=== PATIENT | female | born 1955 | race Caucasian/White ===

== ENCOUNTER 2018-08-13 05:40 | Inpatient (IN) | payer OTHER ==
[2018-08-13] VITALS (29 sets, daily range): BP systolic 101–144; BP diastolic 46–73; PULSE 66–94; RESP 9–21; Ht 157.5 cm; Wt 63.4 kg
[~2018-08-13] VITALS: Ht 157.5 cm; Wt 63.4 kg
[2018-08-13] MEDS ORDERED: ALEN5TAB3 PO (06:20)
[2018-08-13] MEDS ORDERED: BUPIVACAINE 0.5%/EPI (SDV) 30 ML INJ ONE (06:44)
[2018-08-13] MEDS ORDERED: SURGIFOAM POWDER 1 GM KIT ONE (06:44)
--- NOTE | 2018-08-13 06:44 | PREAC ---
Date/Time of Note Date/Time of Note DATE: 08/13/18 TIME: 06:42 Anesthesia Eval and Record Evaluation Time Pre-Procedure Interview DATE: 08/13/18 TIME: 06:42 Age 62 Sex female NPO: 8 hrs Preoperative diagnosis lumbar l5-s1 stenosis Planned procedure l5-s1 microdiscectomy and extraforaminal decompression Past Medical History Past Medical History: Includes Pulm: Smoking Hx Surgery & Anesthesia Issues No known issue Meds Anticoagulation: No Beta Jese within 24 hr: No Reason Beta Jese not given: Pt. not on B-Jese Reported Medications Alendronate Sodium* (Alendronate Sodium*) 5 Mg Tablet, 5 MG PO DAILY, #30 TAB 08/13/18 Meds reviewed: Yes Allergies Coded Allergies: Penicillins (Verified Allergy, Unknown, A CHILD/WAS TOLD BY PARENTS, 08/13/18) Allergies Reviewed: Yes Labs/Studies Labs Reviewed: Reviewed by anesthesiologist test: N/A Pre-procedure Exam Last vitals Vital Signs Date Temp Pulse Resp B/P (MAP) Pulse Ox O2 O2 Flow FiO2 Time Delivery Rate 08/13/18 98.0 85 18 144/73 100 Room Air 06:18 (96) Airway: Adequate mouth opening, Adequate thyromental dist Mallampati: Mallampati I Teeth: Normal Lung: Normal Heart: Normal ASA Physical Status ASA physical status: 2 Emergency: None Planned Anesthetic General/MAC: ETT Planned Pain Management Parenteral pain med Pre-operative Attestations Prior to commencing anesthesia and surgery, the patient was re-evaluated, there was verification of: *The patient's identity *The results of appropriate recent lab work and preoperative vital signs *The above evaluation not changing prior to induction *Anesthetic plan, risk benefits, alternative and complications discussed with patient/family; questions answered; patient/family understands, accepts and wishes to proceed. LYDIA LANG Aug 13, 2018 06:44
[2018-08-13] MEDS ORDERED: POLYMYXIN/BACITRACIN 1L IRRIG ONE (06:45)
[2018-08-13] MEDS ORDERED: HEPARIN 1000 UNITS/ML 10 ML INJ ONE (06:45)
[2018-08-13] MEDS ORDERED: PROPOFOL 20 ML ONE (06:49)
--- NOTE | 2018-08-13 06:56 | HPN ---
Date/Time of Note Date/Time of Note DATE: 08/13/18 TIME: 06:55 Interval H&P Admission Note Pt. seen H&P reviewed: No system changes JULIO CESAR ADHIKARI MD Aug 13, 2018 06:56
[2018-08-13] MEDS ORDERED: BISACODYL 10 MG SUPP PR PRN (07:00)
[2018-08-13] MEDS ORDERED: DIPHENHYDRAMINE 50 MG INJ IV PRN ×2 (07:00→09:30)
[2018-08-13] MEDS ORDERED: AL HYDROX/MG HYDROX/SIMETH 30 ML CUP PO PRN (07:00)
[2018-08-13] MEDS ORDERED: traMADol 50 MG TAB PO PRN (07:00)
[2018-08-13] MEDS ORDERED: CEPASTAT LOZENGE MT PRN (07:00)
[2018-08-13] MEDS ORDERED: NALOXONE (0.4 MG/ML) INJ IV PRN (07:00)
[2018-08-13] MEDS ORDERED: CARISOPRODOL 350 MG TAB PO PRN (07:00)
[2018-08-13] MEDS ORDERED: DESFLURANE 15 MIN ONE (07:00)
[2018-08-13] MEDS ORDERED: DIPHENHYDRAMINE 25 MG CAP PO PRN (07:00)
[2018-08-13] MEDS ORDERED: ONDANSETRON 4 MG INJ IV PRN ×2 (07:00→09:30)
[2018-08-13] MEDS ORDERED: ACETAMINOPHEN 325 MG TAB PO PRN (07:00)
[2018-08-13] MEDS ORDERED: ROCURONIUM 50 MG INJ ONE (07:24)
[2018-08-13] MEDS ORDERED: LIDOCAINE 2% (SDV) 5 ML INJ ONE (07:24)
[2018-08-13] MEDS ORDERED: CEFAZOLIN 1 GM INJ ONE (07:24)
[2018-08-13] MEDS ORDERED: DEXAMETHASONE 4 MG/ML 5 ML INJ ONE (07:25)
[2018-08-13] MEDS ORDERED: ONDANSETRON 4 MG INJ ONE (07:25)
[2018-08-13] MEDS ORDERED: morphine 10 MG INJ ONE (07:27)
[2018-08-13] MEDS: BUPIVACAINE 0.25%/EPI (SDV) 30 ML INJ ONE ×2 (07:34→08:40)
[2018-08-13] MEDS: THROMBIN (BOVINE) 5,000 UNIT VIAL TP ONE ×2 (07:47→08:18)
[2018-08-13] MEDS ORDERED: CA CHLORIDE 10% 10 ML SYRINGE ONE (08:08)
[2018-08-13] MEDS ORDERED: BUPIVACAINE 0.25%/EPI (SDV) 30 ML INJ ONE (08:31)
--- NOTE | 2018-08-13 09:02 | SIPON ---
Date/Time of Note Date/Time of Note DATE: 08/13/18 TIME: 09:02 Operative Report Preoperative Diagnosis Left L5-S1 stenosis Postoperative Diagnosis Left L5-S1 stenosis Operation/Procedure Performed Left L5-S1 decompression and discectomy Surgeon see signature line furniture removalist's assistant Ignacia Haas Anesthesia: general Estimated blood loss: 10 - 50 ml's Transfusion Required none Specimen Disc Grafts/Implants none Complications none JULIO CESAR ADHIKARI MD Aug 13, 2018 09:02
--- NOTE | 2018-08-13 09:05 | PAC ---
Date/Time of Note Date/Time of Note DATE: 08/13/18 TIME: 09:05 Post-Anesthesia Notes Post-Anesthesia Note Last documented vital signs Vital Signs Date Temp Pulse Resp B/P (MAP) Pulse Ox O2 O2 Flow FiO2 Time Delivery Rate 08/13/18 98.6 67 106/71 98 09:03 08/13/18 85 18 144/73 100 Room Air 06:18 (96) Activity: WNL Respiratory function: WNL Cardiovascular function: WNL Mental status: Baseline Pain reasonably controlled: Yes Hydration appropriate: Yes Nausea/Vomiting absent: Yes LYDIA LANG Aug 13, 2018 09:05
[2018-08-13] MEDS ORDERED: MEPERIDINE 25 MG INJ IV PRN (09:30)
[2018-08-13] MEDS ORDERED: EPHEDrine SULFATE 50 MG/5 ML SYG IV PRN (09:30)
[2018-08-13] MEDS ORDERED: KETOROLAC 30 MG INJ IV PRN (09:30)
[2018-08-13] MEDS ORDERED: METOCLOPRAMIDE 10 MG INJ IV PRN (09:30)
[2018-08-13] MEDS ORDERED: FENTAnyl 50 MCG/ML VIAL IV PRN ×3 (09:30)
[2018-08-13] MEDS ORDERED: OXYCODONE/ACETAMINOPHEN (5/325) TAB PO PRN ×2 (09:30)
[2018-08-13] MEDS ORDERED: hydrALAzine 20 MG INJ IV PRN (09:30)
[2018-08-13] MEDS ORDERED: ALBUTEROL 0.083% (NEB) 2.5 MG/3 ML AMP HHN PRN (09:30)
[2018-08-13] MEDS ORDERED: LABETALOL HCL 20MG INJ IV PRN (09:30)
[2018-08-13] MEDS ORDERED: HYDROmorphONE 1 MG/5 ML IV SYRINGE IV PRN ×3 (09:30)
[2018-08-13] MEDS: D5W-0.45 NACL + KCL 20 MEQ 1,000 ML IV SCH ×3 (11:29→22:37)
--- NOTE | 2018-08-13 11:58 | PN ---
Date/Time of Note Date/Time of Note DATE: 08/13/18 TIME: 11:55 Assessment/Plan VTE Prophylaxis Risk score (from Ns)>0 risk: 5 SCD applied (from Ns): Yes Pharmacological prophylaxis: NA/contraindicated Pharm contraindication: surgical contra Lines/Catheters IV Catheter Type (from Nrsg): Saline Lock Subjective 24 Hr Interval Summary Free Text/Dictation 62 yr old woman with symptomatic lumbar disc disease with left sided foraminal stenosis and basck and leg pain. now post of surgery this am. awake, alert, co some back pain, no leg pain.vs ok, no sense of sob, no cought. alert, lungs clear, good distal strength. imp: post op lumbar surgery, doing well no regular meds at home except tramadol will follow Musculoskeletal: back pain Exam/Review of Systems Exam Vitals Vital Signs Date Temp Pulse Resp B/P (MAP) Pulse Ox O2 O2 Flow FiO2 Time Delivery Rate 08/13/18 98.3 69 18 114/56 91 11:46 (75) 08/13/18 Room Air 09:30 Medications Medication Current Medications Potassium Chloride/Dextrose/ Sod Cl 1,000 ml @ 100 mls/hr Q10H IV Last administered on 08/13/18at 11:29; Admin Dose 100 MLS/HR; Start 08/13/18 at 10:00 Tramadol HCl (Ultram) 50 mg Q4H PRN PO .PAIN 1-5; Start 08/13/18 at 07:00 Tramadol HCl (Ultram) 100 mg Q4H PRN PO .PAIN 6-10; Start 08/13/18 at 07:00 Hydromorphone HCl (Dilaudid) 0.2 mg Q1H PRN IV .BREAKTHROUGH PAIN; Start 08/13/18 at 07:00 Ondansetron HCl (Zofran Inj) 4 mg Q6H PRN IV NAUSEA/VOMITING; Start 08/13/18 at 07:00 Bisacodyl (Dulcolax Supp) 10 mg DAILY PRN [place] .CONSTIPATION; Start 08/13/18 at 07:00 Docusate Sodium (Colace) 100 mg BID PO ; Start 08/13/18 at 09:00 Al Hydrox/Mg Hydrox/Simethicone (Mag-Al Plus) 15 ml Q6H PRN PO .CONSTIPATION/DYSPEPSIA; Start 08/13/18 at 07:00 Acetaminophen (Tylenol Tab) 650 mg Q4H PRN PO GARZA OR TEMP GREATER THAN 101.3F; Start 08/13/18 at 07:00 Carisoprodol (Soma) 350 mg TID PRN PO .MUSCLE SPASMS; Start 08/13/18 at 07:00 Phenol (Cepastat Lozenge) 1 lozenge PRN PRN MT .SORE THROAT; Start 08/13/18 at 07:00 Diphenhydramine HCl (Benadryl) 25 mg Q6H PRN PO .ITCHING; Start 08/13/18 at 07:00 Diphenhydramine HCl (Benadryl) 25 mg Q6H PRN IV .ITCHING; Start 08/13/18 at 07:00 Naloxone HCl (Narcan) 0.2 mg Q2M PRN IV .RR 8 BREATHS/MIN OR LESS; Start 08/13/18 at 07:00 Hydromorphone HCl (Dilaudid) 0.2 mg PACU PRN IV MILD PAIN 1-3; Start 08/13/18 at 09:30; Stop 08/13/18 at 18:00 Hydromorphone HCl (Dilaudid) 0.4 mg PACU PRN IV MOD PAIN 4-6; Start 08/13/18 at 09:30; Stop 08/13/18 at 18:00 Hydromorphone HCl (Dilaudid) 0.6 mg PACU PRN IV SEVERE PAIN 7-10; Start 08/13/18 at 09:30; Stop 08/13/18 at 18:00 Fentanyl (Sublimaze) 25 mcg PACU ORDER PRN IV MILD PAIN 1-3; Start 08/13/18 at 09:30; Stop 08/13/18 at 18:00 Fentanyl (Sublimaze) 50 mcg PACU ORDER PRN IV MOD PAIN 4-6 Last administered on 08/13/18at 10:27; Admin Dose 50 MCG; Start 08/13/18 at 09:30; Stop 08/13/18 at 18:00 Fentanyl (Sublimaze) 75 mcg PACU ORDER PRN IV SEVERE PAIN 7-10; Start 08/13/18 at 09:30; Stop 08/13/18 at 18:00 Ketorolac Tromethamine (Toradol) 30 mg PACU ORDER PRN IV FOR PAIN AFTER IV NARCOTIC MED; Start 08/13/18 at 09:30; Stop 08/13/18 at 18:00 Oxycodone/ Acetaminophen (Percocet (5/ 325)) 1 tab PACU ORDER PRN PO .PAIN 1-5; Start 08/13/18 at 09:30; Stop 08/13/18 at 18:00 Oxycodone/ Acetaminophen (Percocet (5/ 325)) 2 tab PACU ORDER PRN PO .PAIN 6-10; Start 08/13/18 at 09:30; Stop 08/13/18 at 18:00 Ondansetron HCl (Zofran Inj) 4 mg PACU ORDER PRN IV NAUSEA/VOMITING; Start 08/13/18 at 09:30; Stop 08/13/18 at 18:00 Metoclopramide HCl (Reglan) 10 mg PACU ORDER PRN IV NAUSEA/VOMITING; Start 08/13/18 at 09:30; Stop 08/13/18 at 18:00 Labetalol HCl (Labetalol) 5 mg PACU ORDER PRN IV HIGH BLOOD PRESSURE; Start 08/13/18 at 09:30; Stop 08/13/18 at 18:00 Hydralazine HCl (Apresoline) 5 mg PACU ORDER PRN IV HIGH BLOOD PRESSURE; Start 08/13/18 at 09:30; Stop 08/13/18 at 18:00 Ephedrine Sulfate 5 mg PACU ORDER PRN IV BLOOD PRESSURE SUPPORT; Start 08/13/18 at 09:30; Stop 08/13/18 at 18:00 Albuterol (Proventil 0.083% (Neb)) 2.5 mg PACU ORDER PRN HHN .WHEEZING; Start 08/13/18 at 09:30; Stop 08/13/18 at 18:00 Meperidine HCl (Demerol) 25 mg PACU ORDER PRN IV .RIGORS; Start 08/13/18 at 09:30; Stop 08/13/18 at 18:00 Diphenhydramine HCl (Benadryl) 25 mg PACU ORDER PRN IV .PRURITUS; Start 08/13/18 at 09:30; Stop 08/13/18 at 18:00 Cefazolin Sodium 50 ml @ 100 mls/hr Q8H IVPB ; Start 08/13/18 at 09:30; Stop 08/14/18 at 06:29 ELIDA ZARAGOZA MD Aug 13, 2018 11:58
[2018-08-13] MEDS: DOCUSATE SODIUM 100 MG CAP PO SCH ×2 (12:00→20:20)
[2018-08-13] MEDS ORDERED: VANCOMYCIN 1 GM (PMX) 250 ML IVPB SCH (12:00)
[2018-08-13] MEDS: CEFAZOLIN 1 GM/50 ML (PMX) 50 ML IVPB SCH ×2 (14:21→21:23)
--- NOTE | 2018-08-13 14:35 | OPR ---
DATE OF OPERATION: 08/13/2018 PREOPERATIVE DIAGNOSES: 1. Left L5-S1 stenosis with disk herniation. 2. Left lumbar radiculopathy. POSTOPERATIVE DIAGNOSES: 1. Left L5-S1 stenosis with disk herniation. 2. Left lumbar radiculopathy. OPERATIONS PERFORMED: 1. Left L5-S1 decompression with decompression of L5 and S1 nerve roots. 2. Left L5-S1 microdiskectomy. 3. Left L5 extraforaminal decompression with Baxano. 4. Use of operative microscope. 5. Use of C-arm fluoroscopy with interpretation without radiologist present. 6. Intraoperative neuromonitoring. PRIMARY SURGEON: Mega Briggs MD BALANCE WHEEL SCREW HOLE TAPPER: Ignacia Haas PA-C NEED FOR NEEDLE PROCESS FELT GOODS SUPERVISOR: During this spinal surgical procedure, my optical assistant was used to retract and protect the spinal nerves and dural sac. My optical assistant also employed the suction catheters to evacuate blood from the surgical field to improve visualization of the neural structures. The optical assistant was medically necessary to facilitate the completion of the surgery in a safe and expeditious manner. [facility] [place] regulations, as well as hospital bylaws, preclude the use of non-licensed health care personnel, such as operating room technicians, to perform these functions. FINDINGS: Neuromonitoring at the start of the case revealed left L5 amplitude down to 60%, right L5 down to 20%, left S1 down to 30%. At the end of the case, the nerve signals returned to normal. The patient's stenosis on the left at L5- S1. There was extraforaminal stenosis as well as a left foraminal herniation at L5-S1. This resulted in stenosis. ESTIMATED BLOOD LOSS: Less than 50 mL. DRAINS: None. SPECIMENS: L5-S1 disk. COMPLICATIONS OF PROCEDURES: None. ANESTHESIOLOGIST: Petr Sultana MD TYPE OF ANESTHESIA: General. INDICATIONS FOR PROCEDURE: This is a 62-year-old female with left lumbar radiculopathy and cervical stenosis. She failed nonoperative measures and, therefore, it was recommended that she undergo the above procedures. Preoperatively, we discussed risks, benefits, and alternatives. She understood and wished to proceed. DESCRIPTION OF PROCEDURE IN DETAIL: The patient was identified in the preoperative holding area, given Ancef antibiotic, taken to the operating room, where she was successfully placed under general anesthesia. Neuromonitoring leads were placed, sequential compressive devices were applied. Intraoperative neuromonitoring was performed by Dr. Silverio from 6:35 until 9:07 to include SSEP, MEP, and EMG performed by [employer]. The patient was placed on the operative table in prone position over a Cole frame. All bony prominences were well padded. The back was then prepped and draped in usual sterile fashion. Using a sterile fluoroscope, I identified the incision site. I anesthetized the skin and subcutaneous tissue and paraspinal musculature with 0.25% Marcaine and epinephrine. Incision was then made over the L5-S1 level. This was taken down to the dorsal fascia, which was incised with Bovie cautery. I then subperiosteally dissected the left L5 and S1 laminae. Lori retractor was placed. Kerrisons were placed under the L5 lamina and a repeat lateral film was obtained to confirm the correct levels. Once this was confirmed, microscope was brought in and left-sided hemilaminotomy, partial medial facetectomy, and foraminotomy were performed at the L5-S1 level. Ligamentum flavum was then sharply dissected. I identified the pedicle of L5 and S1 and I decompressed the L5 and S1 nerve roots for stenosis. My optical assistant then retracted neural elements medially, and I made an annulotomy. I removed a left foraminal disk extrusion. Once this was done, I utilized the 10 mm Baxano shaver and performed a left extraforaminal L5 nerve root decompression. In order to use the Baxano, I did the appropriate neuromonitoring along the way and made sure that there were no nerve roots in the path of the iO-Flex device. Once this was completed, all nerve signals returned to normal. I irrigated the foramen and the canal. Hemostasis was achieved with bipolar cautery and Surgifoam. Valsalva maneuver was performed, and there was no leak of CSF. The decompression with the Baxano was performed using the C-arm fluoroscopy to confirm adequate decompression. The retractors were removed. I injected plain Marcaine. I then closed deep fascia with number 1 Vicryl stitch. I closed the subcutaneous tissue with a 2-0 Vicryl stitch. Microscope was taken off the field. A 4-0 Monocryl closure was then performed. Dermabond was then applied. The patient was then awakened from anesthesia and taken to the recovery room in stable condition. Lap, sponge, and instrument counts were correct x2. There were no apparent complications during the procedure. The patient will be admitted to the [facility] for routine postoperative care to include pain control, neurovascular checks, antibiotics, and physical therapy. Dictated By: MEGA SU/SAQIB Conf#: [id number] DID#: [id number] MTDD
--- NOTE | 2018-08-13 16:19 | PN ---
Date/Time of Note Date/Time of Note DATE: 08/13/18 TIME: 16:18 Assessment/Plan Lines/Catheters IV Catheter Type (from Nrsg): Saline Lock Veras in Place (from Nrsg): No Assessment/Plan Assessment/Plan s/p left L5-S1 decompression and microdiscectomy continue ambulation and PT pain control routine care Subjective 24 Hr Interval Summary patient is comfortable hasn't noticed a change in her left leg symptoms yet has started walking Exam/Review of Systems Vital Signs Vitals Vital Signs Date Temp Pulse Resp B/P (MAP) Pulse Ox O2 O2 Flow FiO2 Time Delivery Rate 08/13/18 98.1 66 16 116/56 98 Room Air 13:15 (76) Exam Free Text/Dictation exam unchanged BRUNILDA CHEN PA-C Aug 13, 2018 16:19
[2018-08-13] MEDS: traMADol 50 MG TAB PO PRN (16:37)
[2018-08-13] MEDS: HYDROmorphONE 0.5 MG/0.5 ML SYG IV PRN (22:36)
[2018-08-14 00:32] VITALS: BP 118/65; PULSE 75; RESP 16
[2018-08-14] MEDS: HYDROmorphONE 0.5 MG/0.5 ML SYG IV PRN ×2 (04:49→10:18)
[2018-08-14] MEDS: CEFAZOLIN 1 GM/50 ML (PMX) 50 ML IVPB SCH (06:52)
[2018-08-14 07:50] VITALS: BP 127/75; PULSE 71; RESP 18
--- NOTE | 2018-08-14 08:37 | PN ---
Date/Time of Note Date/Time of Note DATE: 08/14/18 TIME: 08:34 Assessment/Plan VTE Prophylaxis Risk score (from Ns)>0 risk: 4 SCD applied (from Ns): Yes Pharmacological prophylaxis: NA/contraindicated Pharm contraindication: surgical contra Lines/Catheters [facility] Peripheral IV Urinary Cath still in place: No Assessment/Plan Result Diagram: 08/14/18 0422 08/14/18 0422 Results 24hrs Laboratory Tests Test 08/14/18 04:22 08/14/18 07:24 White Blood Count 13.9 H Red Blood Count 3.81 L Hemoglobin 12.1 Hematocrit 36.4 L Mean Corpuscular Volume 95.5 Mean Corpuscular Hemoglobin 31.8 Mean Corpuscular Hemoglobin Concent 33.2 Red Cell Distribution Width 13.2 Platelet Count 244 Mean Platelet Volume 11.8 H Immature Granulocytes % 0.600 H Neutrophils % 81.5 H Lymphocytes % 10.5 L Monocytes % 7.2 Eosinophils % 0.1 Basophils % 0.1 Nucleated Red Blood Cells % 0.0 Immature Granulocytes # 0.080 H Neutrophils # 11.3 H Lymphocytes # 1.5 Monocytes # 1.0 H Eosinophils # 0.0 Basophils # 0.0 Nucleated Red Blood Cells # 0.0 Sodium Level 139 Potassium Level 4.3 Chloride Level 109 Carbon Dioxide Level 23 Anion Gap 7 Blood Urea Nitrogen 6 L Creatinine 0.54 Est Glomerular Filtrat Rate mL/min > 60 Glucose Level 118 Calcium Level 8.8 Magnesium Level 2.0 Lab Scanned Report REFERENCE LAB Subjective 24 Hr Interval Summary Free Text/Dictation first post op day. has already been up with p.t., amb down nunes and eight steps, did well. now up in chair. afebrile, vs ok. labs w sl elevation wbc, otherwise ok alert, lungs clear, hr ok, no edema imp doing well, poss dc later today per ortho Musculoskeletal: back pain Exam/Review of Systems Exam Vitals Vital Signs Date Temp Pulse Resp B/P (MAP) Pulse Ox O2 O2 Flow FiO2 Time Delivery Rate 08/14/18 97.8 71 18 127/75 95 Room Air 07:50 (92) Intake and Output 08/13/18 08/13/18 08/14/18 1515:00 23:00 07:00 IntakeIntake Total 1450 ml 1550 ml 700 ml OutputOutput Total 220 ml 200 ml BalanceBalance 1230 ml 1350 ml 700 ml Results Results 24hrs Laboratory Tests Test 08/14/18 04:22 08/14/18 07:24 White Blood Count 13.9 H Red Blood Count 3.81 L Hemoglobin 12.1 Hematocrit 36.4 L Mean Corpuscular Volume 95.5 Mean Corpuscular Hemoglobin 31.8 Mean Corpuscular Hemoglobin Concent 33.2 Red Cell Distribution Width 13.2 Platelet Count 244 Mean Platelet Volume 11.8 H Immature Granulocytes % 0.600 H Neutrophils % 81.5 H Lymphocytes % 10.5 L Monocytes % 7.2 Eosinophils % 0.1 Basophils % 0.1 Nucleated Red Blood Cells % 0.0 Immature Granulocytes # 0.080 H Neutrophils # 11.3 H Lymphocytes # 1.5 Monocytes # 1.0 H Eosinophils # 0.0 Basophils # 0.0 Nucleated Red Blood Cells # 0.0 Sodium Level 139 Potassium Level 4.3 Chloride Level 109 Carbon Dioxide Level 23 Anion Gap 7 Blood Urea Nitrogen 6 L Creatinine 0.54 Est Glomerular Filtrat Rate mL/min > 60 Glucose Level 118 Calcium Level 8.8 Magnesium Level 2.0 Lab Scanned Report REFERENCE LAB Medications Medication Current Medications Potassium Chloride/Dextrose/ Sod Cl 1,000 ml @ 100 mls/hr Q10H IV Last adminis tered on 08/13/18at 22:37; Admin Dose 100 MLS/HR; Start 08/13/18 at 10:00 Tramadol HCl (Ultram) 50 mg Q4H PRN PO .PAIN 1-5 Last administered on 08/13/18 14:27; Admin Dose 50 MG; Start 08/13/18 at 07:00 Tramadol HCl (Ultram) 100 mg Q4H PRN PO .PAIN 6-10 Last administered on 08/13/18at 16:37; Admin Dose 100 MG; Start 08/13/18 at 07:00 Hydromorphone HCl (Dilaudid) 0.2 mg Q1H PRN IV .BREAKTHROUGH PAIN Last administered on 08/14/18at 04:49; Admin Dose 0.2 MG; Start 08/13/18 at 07:00 Ondansetron HCl (Zofran Inj) 4 mg Q6H PRN IV NAUSEA/VOMITING; Start 08/13/18 at 07:00 Bisacodyl (Dulcolax Supp) 10 mg DAILY PRN [place] .CONSTIPATION; Start 08/13/18 at 07:00 Docusate Sodium (Colace) 100 mg BID PO Last administered on 08/13/18at 20:20; Admin Dose 100 MG; Start 08/13/18 at 09:00 Al Hydrox/Mg Hydrox/Simethicone (Mag-Al Plus) 15 ml Q6H PRN PO .CONSTIPATION/DYSPEPSIA; Start 08/13/18 at 07:00 Acetaminophen (Tylenol Tab) 650 mg Q4H PRN PO GARZA OR TEMP GREATER THAN 101.3F; Start 08/13/18 at 07:00 Carisoprodol (Soma) 350 mg TID PRN PO .MUSCLE SPASMS; Start 08/13/18 at 07:00 Phenol (Cepastat Lozenge) 1 lozenge PRN PRN MT .SORE THROAT; Start 08/13/18 at 07:00 Diphenhydramine HCl (Benadryl) 25 mg Q6H PRN PO .ITCHING; Start 08/13/18 at 07:00 Diphenhydramine HCl (Benadryl) 25 mg Q6H PRN IV .ITCHING; Start 08/13/18 at 07:00 Naloxone HCl (Narcan) 0.2 mg Q2M PRN IV .RR 8 BREATHS/MIN OR LESS; Start at 07:00 ELIDA ZARAGOZA MD Aug 14, 2018 08:37
[2018-08-14] MEDS: DOCUSATE SODIUM 100 MG CAP PO SCH (10:17)
--- NOTE | 2018-08-14 12:54 | DS ---
Date/Time of Note Date/Time of Note DATE: 08/14/18 TIME: 12:53 Discharge Summary Admission/Discharge Info Admit Date/Time Aug 13, 2018 at 06:56 Discharge Date/Time August 14 Discharge Diagnosis Lumbar decompression Patient Condition: Good Procedures Lumbar decompression Hospital Course Patient was admitted to the [facility] after undergoing a lumbar decompression. The patient's postoperative course was uncomplicated. By postoperative day 1 the patient was deemed stable for discharge with follow-up arranged with the undersigned Home Meds Reported Medications Alendronate Sodium* (Alendronate Sodium*) 5 Mg Tablet, 5 MG PO DAILY, #30 TAB 08/13/18 Primary Care Provider Not On Staff Doctor Pending Labs Laboratory Tests Test 08/14/18 04:22 08/14/18 07:24 White Blood Count 13.9 10^3/ul (4.8-10.8) Red Blood Count 3.81 10^6/ul (4.20-5.40) Hemoglobin 12.1 g/dl (12.0-16.0) Hematocrit 36.4 % (37.0-47.0) Mean Corpuscular Volume 95.5 fl (82.0-101.0) Mean Corpuscular Hemoglobin 31.8 pg (29.0-33.0) Mean Corpuscular 33.2 g/dl (32.0-37.0) Hemoglobin Concent Red Cell Distribution Width 13.2 % (11.5-14.5) Platelet Count 244 10^3/UL (140-415) Mean Platelet Volume 11.8 fl (7.4-10.4) Immature Granulocytes % 0.600 % (0.001-0.429) Neutrophils % 81.5 % (39.0-77.0) Lymphocytes % 10.5 % (15.0-51.0) Monocytes % 7.2 % (0.0-11.0) Eosinophils % 0.1 % (0.0-7.0) Basophils % 0.1 % (0.0-2.0) Nucleated Red Blood Cells % 0.0 /100WBC (0.0-0.0) Immature Granulocytes # 0.080 10^3/ul (0.0-0.031) Neutrophils # 11.3 10^3/ul (1.6-7.5) Lymphocytes # 1.5 10^3/ul (0.8-2.9) Monocytes # 1.0 10^3/ul (0.3-0.9) Eosinophils # 0.0 10^3/ul (0.0-0.5) Basophils # 0.0 10^3/ul (0.0-0.1) Nucleated Red Blood Cells # 0.0 10^3/ul (0.0-0.0) Sodium Level 139 mmol/L (135-144) Potassium Level 4.3 mmol/L (3.5-5.1) Chloride Level 109 mmol/L (97-110) Carbon Dioxide Level 23 mmol/L (21-31) Anion Gap 7 (5-13) Blood Urea Nitrogen 6 mg/dl (7-20) Creatinine 0.54 mg/dl (0.44-1.00) Est Glomerular Filtrat > 60 mL/min (>60) Rate mL/min Glucose Level 118 mg/dl (70-220) Calcium Level 8.8 mg/dl (8.4-10.2) Magnesium Level 2.0 mg/dl (1.7-2.5) Lab Scanned Report REFERENCE LAB [id number] JULIO CESAR ADHIKARI MD Aug 14, 2018 12:54
[2018-08-14] MEDS: traMADol 50 MG TAB PO PRN (14:12)
== END 2018-08-14 14:35 | disposition home or self-care (01) | DRG 520 ==
LOC: SDS 05:40 → REC 06:56 → EDSTATUS 07:00 → MS1 10:56
PROVIDERS: ADMIT Specialist; ATTEND Specialist
PROC: 01NB0ZZ Release Lumbar Nerve, Open Approach (ICD-10-PCS; 2018-08-13)
PROC: 4A11X4G Monitoring of Peripheral Nervous Electrical Activity, Intraoperative, External Approach (ICD-10-PCS; 2018-08-13)
PROC: 0SB20ZZ Excision of Lumbar Vertebral Disc, Open Approach (ICD-10-PCS; principal; 2018-08-13 07:00)
DX: M51.17 Intervertebral disc disorders with radiculopathy, lumbosacral region (principal); M54.16 Radiculopathy, lumbar region; M48.07 Spinal stenosis, lumbosacral region
CPT/HCPCS: 72100; 80048; 83735; 85025; 86999; 88304; 97110; 97116; 97161; 97530; J0690; J1100; J1170; J1644; J2270; J2405; J3010; J3480